=== PATIENT | female | born 1950 | race Caucasian/White ===

== ENCOUNTER 2018-04-08 10:49 | Inpatient (IN) | payer MEDICARE, MEDICAID ==
[~2018-04-08] VITALS: Ht 172.7 cm; Wt 75.0 kg
[2018-04-09] MEDS ORDERED: LORAZEPAM 1MG TABLET PO ONE ×2 (00:15→04:00)
[2018-04-09] MEDS ORDERED: NITROGLYCERIN OINT 1GM/INCH UDPKT TD ONE (00:15)
[2018-04-09] MEDS ORDERED: ASPIRIN 81MG TABLET PO ONE (00:15)
[2018-04-09 00:35] LABS: BASOPHILS % 0.4 % (0.0-2.0); EOSINOPHILS % 1.3 % (0.0-5.0); HEMATOCRIT. 44.6 % (36.0-48.0); LYMPHOCYTES % 34.6 % (20.0-50.0); MEAN CORPUSCULAR HEMOGLOBIN 29.7 pg (28.0-32.0); MEAN CORPUSCULAR VOLUME 88.4 fL (81.0-99.0); MEAN PLATELET VOLUME 8.3 fl (7.4-10.4); MONOCYTES % 6.8 % (2.0-8.0); NEUTROPHILS % 56.9 % (40.0-76.0); PLATELET 249 x1000/uL (130-400); RED BLOOD CELL COUNT 5.05 mill/uL (4.2-5.4); RED CELL DISTRIBUTION WIDTH 13.6 % (11.6-14.6)
[2018-04-09 00:41] LABS: CHLORIDE 108 mEq/L (98-107)
[2018-04-09] MEDS ORDERED: HYDROCODONE/ACETAMINOPHEN 5/325MG TABLET PO ONE (04:00)
[2018-04-09] MEDS ORDERED: ENOXAPARIN 40MG/0.4ML SYR SUBCUT SCH (05:15)
[2018-04-09] MEDS ORDERED: ACETAMINOPHEN 325MG TABLET PO PRN (05:15)
[2018-04-09] MEDS ORDERED: CLONIDINE 0.1MG TABLET PO PRN (05:15)
[2018-04-09] MEDS ORDERED: ONDANSETRON HCL 4MG/2ML INJ IV PRN (05:15)
[2018-04-09 09:25] VITALS: BP_SYST 113; BP_SYST 114; BP_DIAS 76; BP_DIAS 82
[2018-04-09 10:10] LABS: T4 FREE 0.94 ng/dL (0.76-1.46)
[2018-04-09] MEDS: ENOXAPARIN 40MG/0.4ML SYR SUBCUT SCH ×2 (11:00→13:01)
[2018-04-09 12:00] VITALS: BP 111/72
[2018-04-09] MEDS ORDERED: FLUO20CA33 PO (12:26)
[2018-04-09] MEDS ORDERED: NASA BOTHNSTRLS (12:26)
[2018-04-09] MEDS ORDERED: IBUP-2029 PO (12:26)
[2018-04-09] MEDS ORDERED: IMIT25 PO (12:26)
[2018-04-09] MEDS ORDERED: FLUT1DIS2 INH (12:26)
[2018-04-09] MEDS ORDERED: LORA2TAB95 PO (12:26)
[2018-04-09] MEDS ORDERED: ESTRPATC TD (12:26)
[2018-04-09] MEDS: HYDROMORPHONE HCL/PF 2MG/ML CPJ IV PRN ×2 (12:59→16:01)
[2018-04-09 13:11] LABS: CLARITY URINE CLEAR (CLEAR); COLOR URINE YELLOW (YELLOW); KETONES URINE TRACE (NEGATIVE); LEUKOCYTE ESTERASE URINE NEGATIVE (NEGATIVE); NITRITE URINE NEGATIVE (NEGATIVE); OCCULT BLOOD URINE NEGATIVE (NEGATIVE); PH URINE 5.5 (4.5-8.0); PROTEIN URINE NEGATIVE (NEGATIVE); SPECIFIC GRAVITY URINE 1.018 (1.005-1.030); UROBILINOGEN URINE 0.2 E.U./dL (0.2-1.0)
[2018-04-09 13:34] LABS: *AMPHETAMINES SCREEN URINE NEGATIVE (NEGATIVE); *BENZODIAZEPINES SCREEN URINE PRESUMTIVE POSITIVE (NEGATIVE); *COCAINE SCREEN URINE NEGATIVE (NEGATIVE); METHADONE URINE SCREEN NEGATIVE (NEGATIVE); OPIATES URINE SCREEN PRESUMTIVE POSITIVE (NEGATIVE)
[2018-04-09 13:35] LABS: CANNABINOID URINE SCREEN NEGATIVE (NEGATIVE); PHENCYCLIDINE URINE SCREEN NEGATIVE (NEGATIVE)
[2018-04-09 13:36] LABS: *BARBITURATES SCREEN URINE NEGATIVE (NEGATIVE)
[2018-04-09 14:46] LABS: CREATINE KINASE 89 IU/L (26-192)
[2018-04-09 14:53] LABS: CREATINE KINASE MB FRACTION 2.1 ng/mL (0.5-3.6)
[2018-04-09 16:00] VITALS: BP 102/61
[2018-04-09] MEDS ORDERED: ALBUTEROL (0.083%) 2.5MG/3ML NEB HHN PRN (19:45)
[2018-04-09 20:00] VITALS: BP 123/80
[2018-04-10] VITALS: BP 120/82
[2018-04-10 00:14] LABS: CREATINE KINASE MB FRACTION 1.7 ng/mL (0.5-3.6)
[2018-04-10 04:00] VITALS: BP 133/78
[2018-04-10 06:00] VITALS: BP 133/78
[2018-04-10] MEDS ORDERED: HYDROCODONE/APAP 7.5/325MG 1 TAB TABLET PO PRN (07:30)
[2018-04-10] MEDS ORDERED: ZOLPIDEM TARTRATE 5MG TABLET PO PRN (07:30)
[2018-04-10] MEDS ORDERED: LORAZEPAM 1MG TABLET PO PRN (07:30)
[2018-04-10 08:00] VITALS: BP 126/77
[2018-04-10 08:17] LABS: BASOPHILS % 0.3 % (0.0-2.0); EOSINOPHILS % 1.6 % (0.0-5.0); HEMATOCRIT. 39.4 % (36.0-48.0); HEMOGLOBIN. 12.7 g/dL (12.0-16.0); LYMPHOCYTES % 37.9 % (20.0-50.0); MEAN CORPUSCULAR HEMOGLOBIN 29.2 pg (28.0-32.0); MEAN CORPUSCULAR VOLUME 90.8 fL (81.0-99.0); MEAN PLATELET VOLUME 8.5 fl (7.4-10.4); MONOCYTES % 9.3 % (2.0-8.0); NEUTROPHILS % 50.9 % (40.0-76.0); PLATELET 203 x1000/uL (130-400); RED BLOOD CELL COUNT 4.34 mill/uL (4.2-5.4); RED CELL DISTRIBUTION WIDTH 13.7 % (11.6-14.6)
[2018-04-10 08:32] LABS: CHLORIDE 109 mEq/L (98-107)
[2018-04-10 08:44] LABS: CREATINE KINASE 72 IU/L (26-192)
[2018-04-10 08:46] LABS: CREATINE KINASE MB FRACTION 1.4 ng/mL (0.5-3.6)
[2018-04-10] MEDS: FLUOXETINE HCL 20MG CAPSULE PO SCH (09:00)
[2018-04-10] MEDS: ENOXAPARIN 40MG/0.4ML SYR SUBCUT SCH (11:00)
[2018-04-10 12:00] VITALS: BP 135/73
[2018-04-10] MEDS ORDERED: REGADENOSON 0.4 MG/5 ML IV ONE (13:15)
[2018-04-10] MEDS ORDERED: SUMATRIPTAN SUCCINATE 25MG TABLET PO PRN (16:45)
[2018-04-11] VITALS: BP 130/86
[2018-04-11 04:00] VITALS: BP 116/68
[2018-04-11 07:16] LABS: BASOPHILS % 0.4 % (0.0-2.0); EOSINOPHILS % 1.8 % (0.0-5.0); HEMATOCRIT. 39.9 % (36.0-48.0); HEMOGLOBIN. 13.5 g/dL (12.0-16.0); LYMPHOCYTES % 36.2 % (20.0-50.0); MEAN CORPUSCULAR HEMOGLOBIN 29.7 pg (28.0-32.0); MEAN CORPUSCULAR VOLUME 87.7 fL (81.0-99.0); MEAN PLATELET VOLUME 8.5 fl (7.4-10.4); MONOCYTES % 8.2 % (2.0-8.0); NEUTROPHILS % 53.4 % (40.0-76.0); PLATELET 223 x1000/uL (130-400); RED BLOOD CELL COUNT 4.55 mill/uL (4.2-5.4); RED CELL DISTRIBUTION WIDTH 13.2 % (11.6-14.6)
[2018-04-11 07:30] VITALS: BP 116/57
[2018-04-11] MEDS ORDERED: REGADENOSON 0.4 MG/5 ML IV ONE (09:26)
[2018-04-11] MEDS: SODIUM CHLORIDE 0.45% 1,000 ML IV SCH ×2 (10:15→22:51)
[2018-04-11] MEDS ORDERED: LACTULOSE 20G/30ML UDC PO NR (10:30)
[2018-04-11] MEDS ORDERED: NA PHOS,M-B/NA PHOS,DI-BA ENEMA 118ML PR NR (10:30)
[2018-04-11 11:06] LABS: BG SAMPLE SITE Left Radial; BG VENT MODE Room Air
[2018-04-11 11:07] LABS: BG FRACTION INSPIRED OXYGEN 21
[2018-04-11 11:08] LABS: BG BASE EXCESS -2.3 mmol/L (-2.0-2.0); BG HCO3 ACT 22.1 mmol/L (22.0-26.0); BG PCO2 36.5 mmHg (35.0-45.0); BG PH 7.399 (7.350-7.450); BG PO2 75.9 mmHg (75.0-100.0)
[2018-04-11 11:09] LABS: BG TOTAL HEMOGLOBIN 12.9 g/dL (12.0-18.0)
[2018-04-11 11:11] LABS: BG CARBOXYHEMOGLOBIN 0.2 % (0.5-1.5); BG METHEMOGLOBIN 0.1 % (0.0-1.5); BG OXYGEN SATURATION 94.7 % (92.0-98.5); BG OXYHEMOGLOBIN 94.4 % (94.0-97.0)
[2018-04-11 11:12] LABS: BG DEOXYHEMOGLOBIN 5.3 % (0.0-5.0)
[2018-04-11] MEDS: FLUOXETINE HCL 20MG CAPSULE PO SCH (11:29)
[2018-04-11 11:30] VITALS: BP 132/93
[2018-04-11] MEDS: LORAZEPAM 1MG TABLET PO PRN ×2 (11:30→22:50)
[2018-04-11] MEDS: ENOXAPARIN 40MG/0.4ML SYR SUBCUT SCH (11:35)
[2018-04-11] MEDS ORDERED: IPRATROPIUM/ALBUTEROL 0.5-3(2.5)MG/3ML NEB HHN SCH (12:00)
[2018-04-11] MEDS: SUMATRIPTAN SUCCINATE 25MG TABLET PO PRN (13:17)
[2018-04-11 15:30] VITALS: BP 127/93
[2018-04-11] MEDS ORDERED: FLUTICASONE/VILANTEROL 200-25 BLST.W.DEV ORI SCH (18:00)
[2018-04-11 20:00] VITALS: BP 132/82
[2018-04-11] MEDS: ALBUTEROL 6.7GM HFA INHALER ORI PRN (20:55)
[2018-04-12 00:25] VITALS: BP 107/72
[2018-04-12 04:00] VITALS: BP 117/65
[2018-04-12 07:04] LABS: BASOPHILS % 0.4 % (0.0-2.0); EOSINOPHILS % 1.6 % (0.0-5.0); HEMATOCRIT. 38.3 % (36.0-48.0); HEMOGLOBIN. 12.8 g/dL (12.0-16.0); LYMPHOCYTES % 30.5 % (20.0-50.0); MEAN CORPUSCULAR HEMOGLOBIN 29.3 pg (28.0-32.0); MEAN CORPUSCULAR VOLUME 87.5 fL (81.0-99.0); MONOCYTES % 8.9 % (2.0-8.0); NEUTROPHILS % 58.6 % (40.0-76.0); PLATELET 210 x1000/uL (130-400); RED BLOOD CELL COUNT 4.37 mill/uL (4.2-5.4); RED CELL DISTRIBUTION WIDTH 13.2 % (11.6-14.6)
[2018-04-12 07:19] LABS: CHLORIDE 110 mEq/L (98-107)
[2018-04-12 08:00] VITALS: BP 130/88
[2018-04-12] MEDS: FLUOXETINE HCL 20MG CAPSULE PO SCH (09:50)
[2018-04-12] MEDS: ENOXAPARIN 40MG/0.4ML SYR SUBCUT SCH (09:50)
[2018-04-12] MEDS: SUMATRIPTAN SUCCINATE 25MG TABLET PO PRN (11:58)
[2018-04-12] MEDS: ALBUTEROL 6.7GM HFA INHALER ORI PRN (11:58)
[2018-04-12 12:00] VITALS: BP 119/71
[2018-04-12] MEDS: LORAZEPAM 1MG TABLET PO PRN (12:06)
[2018-04-12 16:00] VITALS: BP 117/64
[2018-04-12] MEDS: SODIUM CHLORIDE 0.45% 1,000 ML IV SCH (17:37)
[2018-04-12 17:54] VITALS: BP 117/64
== END 2018-04-12 18:49 | disposition home or self-care (01) | DRG 206 ==
LOC: ER 12:09 → 8WST 04-09 01:31 → ENRESERV 04-09 07:07
PROVIDERS: ADMIT Internal Medicine Nephrology; ATTEND Internal Medicine Nephrology
DX: M94.0 Chondrocostal junction syndrome [Tietze] (principal); I10 Essential (primary) hypertension; J45.909 Unspecified asthma, uncomplicated; E78.5 Hyperlipidemia, unspecified; F41.9 Anxiety disorder, unspecified; Z96.643 Presence of artificial hip joint, bilateral; E11.9 Type 2 diabetes mellitus without complications; J31.2 Chronic pharyngitis; Z96.659 Presence of unspecified artificial knee joint; E66.9 Obesity, unspecified; G43.909 Migraine, unspecified, not intractable, without status migrainosus; M48.00 Spinal stenosis, site unspecified; Z68.25 Body mass index [BMI] 25.0-25.9, adult; Z59.0 Homelessness; Z85.3 Personal history of malignant neoplasm of breast; Z80.1 Family history of malignant neoplasm of trachea, bronchus and lung; Z83.0 Family history of human immunodeficiency virus [HIV] disease
CPT/HCPCS: 36415; 36600; 71045; 78452; 78582; 80048; 80061; 80305; 82375; 82550; 82553; 82805; 83036; 83605; 83880; 84439; 84443; 84484; 85379; 93005; 93017; 93306; 93970; 97162; 97166; 99285; A9500; A9558; J1170; J1650; J2785; J7611; J7620